=== PATIENT | female | born 1975 | race Two or more races ===

== ENCOUNTER → 2022-07-15 15:50 | Outpatient (BNVA) | payer MEDICAID, SELFPAY | PROVIDERS: PCP Internal Medicine; Visit Provider Physician Assistant Surgical ==

== ENCOUNTER → 2022-09-01 13:02 | Outpatient (BNVA) | payer OTHER, SELFPAY | PROVIDERS: PCP Internal Medicine; Visit Provider Physician Assistant | DX: E66.01 Morbid (severe) obesity due to excess calories (principal); J45.909 Unspecified asthma, uncomplicated; R06.83 Snoring; R40.0 Somnolence; Z98.890 Other specified postprocedural states; Z68.36 Body mass index [BMI] 36.0-36.9, adult | CPT/HCPCS: 99202 ==

== ENCOUNTER 2022-09-29 09:09 | Outpatient (AMB) | payer OTHER, SELFPAY ==
--- NOTE | 2022-09-29 09:10 | MHC.AMNUTRGE ---
Intake VS Expanded 09/29/22 10:47 Height 5 ft 6 in Weight 231 lb BMI 37.3 Body Fat 86.6 Body Fat Percentage 37.4 Muscle Mass 137.6 Visceral Mass 10 Water Mass 103.6 BMR 1,986 Intake Visit Reasons: (OV) Initial Nutrition [facility] [employer] Required: No Allergies No Known Allergies Allergy (Verified 09/01/22 13:09) HPI Nutrition Presentation Details Medical weight loss - start date 09/01/22 starting weight 226# current weight 231# Reason for consult elevated BMI Diet Assmnt Details patient reports she followed her nutrition plan for 3 days and then gave completely. Had a lot of graduation parties, birthday parties etc. patient identifies that she is stuck in the mentality of all or nothing and if she eats something she does not think she should, she completely gives up on healthy eating for the rest of the day. She states she liked the plan and she really wants to start, but is lacking the motivation and waited for todays appointment to regain the motivation. Has inconsistent sleep schedule. Skips breakfast Exercise: None, has a [employer] membership which she has had for 3 years. But she does not use it. She states lack of motivation. Her gym has sauna, steam room, aroma therapy - which she really likes. Encouraged she use the gym as a self-care opportunity. encouraged she go to workout, and allow herself equal time to use the other amenities. Dietary counseling reduction Diagnosis Nutrition problem #1 overweight/obesity As related to (etiology) #1 excess energy intake and physical inactivity As evidenced by (sign/symptom) #1 high BMI Monitoring/Goals Nutrition problem monitoring total energy intake, level of knowledge/skill, total PRO intake, total CHO intake and weight Outcome progress not progressing Learning/Education Readiness to learn fair Stages of change preparation Educational materials provided Yes Most Recent Diabetes Results: No Data to Display PFSH Surgical History Hx of abdominoplasty Hx of section Hx of tubal ligation Family History Mother Diabetes Hypertension Father No problems noted. Sister No problems noted. Brother No problems noted. Son No problems noted. Son No problems noted. Social History (Reviewed 09/01/22 @ 13:10 by DILLON Mazariegos Alcohol intake: current Alcohol intake frequency: holidays/special occasions only Patient Tobacco Use Status: Never used Tobacco Assessment & Plan Assessment & Plan (1) Obesity (BMI 30-39.9): Code(s): E66.9 - Obesity, unspecified Patient Instructions: Encouraged accepting this as a lifestyle , not as a diet and try to work on all or nothing mentality . Educated pt on the importance of protein and learning to balance her plate for weight management. Focus on using the plate method when going out to events. Encouraged a consistent sleep schedule. We also talked about exercise and the importance Adjusted her nutrition plan to the below: 9am Premier shake / 12pm yogurt and fruit or meal / 3pm shake or bar / 6pm dinner meal Provided recipe resources and ideas to help patient realized that food can be healthy and be delicious. Coding Level of Care Code Nutr Indiv Intake (61939) Diagnoses Obesity (BMI 30-39.9) E66.9 Time Spent (min) 45 Comment office
[2022-09-29 10:47] VITALS: BMI 37.3
== END 2022-09-29 10:25 | disposition home or self-care (01) ==
PROVIDERS: PCP Internal Medicine; Visit Provider Dietitian, Registered
DX: E66.9 Obesity, unspecified (principal)

== ENCOUNTER → 2022-09-29 09:09 | Outpatient (BNVA) | payer OTHER, SELFPAY | PROVIDERS: PCP Internal Medicine; Visit Provider Dietitian, Registered | DX: E66.9 Obesity, unspecified (principal); R06.83 Snoring; R40.0 Somnolence; Z68.37 Body mass index [BMI] 37.0-37.9, adult | CPT/HCPCS: 97802 ==

== ENCOUNTER → 2022-10-07 16:01 | Outpatient (REF) | payer OTHER, SELFPAY | LOC: HO.SL 16:01 | PROVIDERS: PCP Internal Medicine; Visit Provider Physician Assistant | DX: R06.83 Snoring (principal); R40.0 Somnolence; E66.01 Morbid (severe) obesity due to excess calories | CPT/HCPCS: 95806 ==

== ENCOUNTER → 2022-10-07 16:12 | Outpatient (BNV) | payer OTHER, SELFPAY | PROVIDERS: PCP Internal Medicine; Visit Provider Internal Medicine | DX: R06.83 Snoring (principal) | CPT/HCPCS: 95806 ==